=== PATIENT | male | born 1995 | race Caucasian/White ===

== ENCOUNTER 2018-01-19 16:55 | Emergency (ER) | payer OTHER ==
[2018-01-19 17:01] VITALS: BP 92/67
--- NOTE | 2018-01-19 17:11 | EDPHY ---
H & P Stated Complaint: RAN INTO A WALL WHILE ETOH THURSDAY /LAC TO R EYEBROW DENIES LOC Time Seen by Provider: 01/19/18 17:05 HPI/ROS: CHIEF COMPLAINT: Eyebrow laceration HISTORY OF PRESENT ILLNESS: The patient is a 22-year-old man who comes to the emergency department complaining of a laceration to his right eyebrow. He states that he was intoxicated on Thursday night when he walked into a doorway. He suffered a laceration. He denies concussion symptoms. He denied persistent headache or nausea confusion the etc. He did not lose consciousness at the time. He comes in today wondering if he should have stitches and with questions about how to keep the wound from getting infected. Severity: Mild Modifying factors: Non REVIEW OF SYSTEMS: Constitutional: denies: chills, fever, recent illness, recent injury EENTM: denies: blurred vision, double vision, nose congestion Respiratory: denies: cough, shortness of breath Cardiac: denies: chest pain, irregular heart rate, lightheadedness, palpitations Gastrointestinal/Abdominal: denies: abdominal pain, diarrhea, nausea, vomiting, blood streaked stools Genitourinary: denies: dysuria, frequency, hematuria, pain Musculoskeletal: denies: joint pain, muscle pain Skin: See above Neurological: denies: headache, numbness, paresthesia, tingling, dizziness, weakness Hematologic/Lymphatic: denies: blood clots, easy bleeding, easy bruising Immunologic/allergic: denies: HIV/AIDS, transplant 10 systems reviewed and negative except as noted EXAM: GENERAL: Well-appearing, well-nourished and in no acute distress. HEAD: Atraumatic, normocephalic. EYES: Pupils equal round and reactive to light, extraocular movements intact, sclera anicteric, conjunctiva are normal. ENT: TMs normal, nares patent, oropharynx clear without exudates. Moist mucous membranes. NECK: Normal range of motion, supple without lymphadenopathy or JVD. LUNGS: Breath sounds clear to auscultation bilaterally and equal. No wheezes rales or rhonchi. HEART: Regular rate and rhythm without murmurs, rubs or gallops. ABDOMEN: Soft, nontender, normoactive bowel sounds. No guarding, no rebound. No masses appreciated. BACK: No CVA tenderness, no spinal tenderness, step-offs or deformities EXTREMITIES: Normal range of motion, no pitting or edema. No clubbing or cyanosis. NEUROLOGICAL: Cranial nerves II through XII grossly intact. Normal speech, normal gait. 5/5 strength, normal movement in all extremities, normal sensation , normal reflexes PSYCH: Normal mood, normal affect. SKIN: 2 cm flap-like laceration to right eyebrow, closed and well approximated , no sign of infection. Source: Patient Exam Limitations: No limitations - Personal History Current Tetanus Diphtheria and Acellular Pertussis (TDAP): Yes - Medical/Surgical History Hx Asthma: No Hx Chronic Respiratory Disease: No Hx Diabetes: No Hx Cardiac Disease: No Hx Renal Disease: No Hx Cirrhosis: No Hx Alcoholism: No Hx HIV/AIDS: No Hx Splenectomy or Spleen Trauma: No Other PMH: SKULL FX CHILD1 - Family History Significant Family History: No pertinent family hx - Social History Smoking Status: Current some day smoker Alcohol Use: Sober Drug Use: None Constitutional: Initial Vital Signs Temperature (C) 36.6 C 01/19/18 16:57 Heart Rate 72 01/19/18 16:57 Respiratory Rate 17 01/19/18 16:57 Blood Pressure 92/67 L 01/19/18 16:57 O2 Sat (%) 97 01/19/18 16:57 O2 Delivery Mode Room Air Allergies/Adverse Reactions: No Known Allergies Allergy (Unverified 01/19/18 16:57) Home Medications: Medication Instructions Recorded NK [No Known Home Meds] 01/19/18 Medical Decision Making ED Course/Re-evaluation: The patient's wound seems to be healing appropriately. His wound was cleaned and dressed with antibiotic ointment and sterile gauze. Wound care was taught. It does not look infected. We discussed sutures in that we would not place him after 24 hr in the face. We discussed antibiotic ointment and keeping it covered. He does suffer some hair stuck in the scab but do not think that this is currently obstructing wound healing. We discussed follow-up and indications for returning. Differential Diagnosis: Partial list of the Differential diagnosis considered include but were not limited to; laceration, wound infection, foreign body, concussion and although unlikely based on the history and physical exam, I also considered intracranial injury, fracture, neck injury, non accidental trauma. I discussed these differential diagnoses and the plan with the patient as well as the usual and expected course. The patient understands that the diagnosis is provisional and that in medicine we are not always correct and that further workup is often warranted. Usual and customary warnings were given. All of the patient's questions were answered. The patient was instructed to return to the emergency department should the symptoms at all worsen or return, otherwise to followup with the physician as we discussed. Departure - Departure Disposition: Home, Routine, Self-Care Clinical Impression: Laceration Condition: Fair Instructions: Laceration (ED) Referrals: NONE *PRIMARY CARE P,. [Primary Care Provider] - As per Instructions NADIRA MITCHELL H,. [Clinic] - As per Instructions
== END 2018-01-19 17:21 | disposition home or self-care (01) ==
DX: S01.81XA Laceration without foreign body of other part of head, initial encounter (principal); W22.09XA Striking against other stationary object, initial encounter; Y99.8 Other external cause status